=== PATIENT | female | born 1985 | race American Indian/Alaskan Native ===

== ENCOUNTER 2016-09-11 20:15 | Emergency (ER) | payer MEDICAID ==
[2016-09-11 21:23] VITALS: BP 143/96
[2016-09-11 21:39] LABS: Basophils % (Auto) 0.4 % (0.0-1.8); Eosinophils % (Auto) 0.4 % (0.0-4.3); Hemoglobin 13.6 gm/dl (10.1-14.3); Mean Corpuscular HGB Conc 33 % (30-34); Mean Corpuscular Hemoglobin 31 pg (28-32); Mean Corpuscular Volume 92 fl (79-97); Platelet Count 179 K/mm3 (140-440); Red Blood Count 4.46 M/mm3 (3.65-5.03); Red Cell Distribution Width 14.1 % (13.2-15.2); White Blood Count 11.6 K/mm3 (4.5-11.0)
[2016-09-11 22:29] LABS: Bilirubin,Urine NEG (Negative); Blood,Urine SM (Negative); Ketones,Urine 20 mg/dL (Negative); Leukocyte Esterase,Urine NEG (Negative); Mucus,Urine 3+ /HPF; Nitrite,Urine NEG (Negative); Protein,Urine <15 mg/dL mg/dL (Negative); Urobilinogen,Urine < 2.0 mg/dL (<2.0); WBC,Urine < 1.0 /HPF (0.0-6.0)
== END 2016-09-12 | disposition left against medical advice (07) ==
LOC: ED 20:15
DX: O26.851 Spotting complicating pregnancy, first trimester (principal); O20.9 Hemorrhage in early pregnancy, unspecified; Z3A.01 Less than 8 weeks gestation of pregnancy; Z53.21 Procedure and treatment not carried out due to patient leaving prior to being seen by health care provider
CPT/HCPCS: 36415; 81001; 84702; 85025; 86850; 86900; 86901

== ENCOUNTER 2016-09-12 09:40 | Emergency (ER) | payer MEDICAID ==
[2016-09-12 09:57] VITALS: BP 141/83
[2016-09-12 10:18] LABS: Basophils % (Auto) 0.4 % (0.0-1.8); Eosinophils % (Auto) 0.2 % (0.0-4.3); Hemoglobin 12.9 gm/dl (10.1-14.3); Mean Corpuscular HGB Conc 33 % (30-34); Mean Corpuscular Hemoglobin 30 pg (28-32); Mean Corpuscular Volume 92 fl (79-97); Platelet Count 180 K/mm3 (140-440); Red Blood Count 4.25 M/mm3 (3.65-5.03); Red Cell Distribution Width 13.8 % (13.2-15.2)
[2016-09-12 10:39] LABS: Bilirubin,Urine NEG (Negative); Blood,Urine MOD (Negative); Ketones,Urine NEG (Negative); Leukocyte Esterase,Urine NEG (Negative); Mucus,Urine 3+ /HPF; Nitrite,Urine NEG (Negative); Protein,Urine <15 mg/dL mg/dL (Negative); Urobilinogen,Urine < 2.0 mg/dL (<2.0)
[2016-09-12 10:45] LABS: Alanine Aminotransferase 13 units/L (7-56); Albumin/Globulin Ratio 1.2 %; Alkaline Phosphatase 66 units/L (35-129); Anion Gap 17 mmol/L; Bilirubin,Total 0.5 mg/dL (0.1-1.2); Blood Urea Nitrogen 8 mg/dL (7-17); Carbon Dioxide 22 mmol/L (22-30); Chloride 101.7 mmol/L (98-107); Glucose 104 mg/dL (65-100); Lipase 19 units/L (13-60); Potassium 3.7 mmol/L (3.6-5.0); Sodium 137 mmol/L (137-145); Total Protein 7.3 g/dL (6.3-8.2)
== END 2016-09-12 10:12 | disposition left against medical advice (07) ==
LOC: ED 09:40
DX: O26.891 Other specified pregnancy related conditions, first trimester (principal); R11.0 Nausea; R19.7 Diarrhea, unspecified; Z3A.01 Less than 8 weeks gestation of pregnancy
CPT/HCPCS: 36415; 80053; 81001; 83690; 84703; 85025

== ENCOUNTER 2017-01-10 16:36 | Outpatient (CLI) | payer MEDICAID ==
[2017-01-10] MEDS ORDERED: LACTATED RINGERS 500 ML IV ONE (18:00)
[2017-01-10 18:03] LABS: Bilirubin,Urine NEG (Negative); Blood,Urine NEG (Negative); Ketones,Urine 20 mg/dL (Negative); Leukocyte Esterase,Urine NEG (Negative); Mucus,Urine 2+ /HPF; Nitrite,Urine NEG (Negative); Protein,Urine <15 mg/dL mg/dL (Negative); Urobilinogen,Urine < 2.0 mg/dL (<2.0)
[2017-01-10] MEDS ORDERED: TYLENOL PO ONE (19:20)
[2017-01-10 19:32] VITALS: BP 104/55
--- NOTE | 2017-01-11 10:05 | Ultrasound Report ---
ULTRASOUND OB LIMITED History: well being Technique: Transabdominal ultrasound with Doppler interrogation. Gestation: Single Position: Transverse, head to maternal left Amniotic Fluid: Normal KAVON = 12.9 cm Placenta: Anterior Placental Grade: 0 Heart Rate: 158 BPM
== END 2017-01-10 20:15 | disposition home or self-care (01) ==
LOC: TRG 16:36
PROVIDERS: ATTEND Obstetrics & Gynecology
DX: O32.2XX0 Maternal care for transverse and oblique lie, not applicable or unspecified (principal); O47.02 False labor before 37 completed weeks of gestation, second trimester; Z3A.23 23 weeks gestation of pregnancy
CPT/HCPCS: 76815; 81001; 96360; J7120

== ENCOUNTER 2018-10-15 14:54 | Inpatient (IN) | payer MEDICAID ==
[2018-10-15 23:34] LABS: Hematocrit 32.3 % (30.3-42.9); Hemoglobin 10.7 gm/dl (10.1-14.3); Mean Corpuscular HGB Conc 33 % (30-34); Mean Corpuscular Volume 88 fl (79-97); Platelet Count 217 K/mm3 (140-440); Red Blood Count 3.68 M/mm3 (3.65-5.03); Red Cell Distribution Width 14.6 % (13.2-15.2)
[2018-10-15] MEDS ORDERED: PITOCin/NS 20 UNIT/1000ML DRIP 20 UNITS/1,000 ML BAG IV SCH ×2 (23:45)
[2018-10-15] MEDS ORDERED: MINERAL OIL PO PRN (23:51)
[2018-10-15] MEDS ORDERED: SUBLIMAZE IV PRN (23:51)
[2018-10-15] MEDS ORDERED: CERVIDIL VG ONE (23:51)
[2018-10-15] MEDS ORDERED: STADOL IV PRN (23:51)
[2018-10-15] MEDS ORDERED: XYLOCAINE 2% INFILTRATI ONE (23:51)
[2018-10-15 23:57] LABS: Alanine Aminotransferase 7 units/L (7-56)
[2018-10-16] MEDS ORDERED: AMBIEN PO ONE (00:03)
[2018-10-16] MEDS ORDERED: APRESOLINE IV PRN (01:30)
[2018-10-16 01:51] LABS: Uric Acid 4.2 mg/dL (3.5-7.6)
[2018-10-16 04:32] LABS: Bilirubin,Urine NEG (Negative); Blood,Urine NEG (Negative); Color,Urine Yellow (Yellow); Hyaline Casts,Urine 5 /LPF; Mucus,Urine 3+ /HPF; Urobilinogen,Urine < 2.0 mg/dL (<2.0); WBC,Urine < 1.0 /HPF (0.0-6.0)
[2018-10-16] MEDS: LACTATED RINGERS 1,000 ML IV SCH ×2 (07:05→11:10)
--- NOTE | 2018-10-16 08:28 | History and Physical Report ---
History of Present Illness Date of examination: 10/16/18 Date of admission: 10/15/18 19:07 Chief complaint: sent from [facility] for induction History of present illness: Pt is a 33 year old -[place] female SHAYE 11/04/18 at 37w2d who presents from [facility] clinic for induction of labor secondary to gestational hypertension. She denies vaginal bleeding or leakage of fluid. She has had care at [facility] with comanagement by [facility] complicated by morbid obesity, late care, ptyalism and rubella equivocal status. She is GBS Negative. Pt was admitted overnight and received cervidil at 0030 am Past History Past Medical History: GERD, other (obesity) Past Surgical History: no surgical history Family/Genetic History: diabetes Social history: no significant social history - Obstetrical History Expected Date of Delivery: 11/04/18 Actual Gestation: 37 Week(s) 2 Day(s) : 5 Para: 4 Hx # Term Pregnancies: 4 Number of Pregnancies: 0 Spontaneous Abortions: 0 Induced : 0 Number of Living Children: 4 Medications and Allergies Allergies Allergy/AdvReac Type Severity Reaction Status Date / Time No Known Allergies Allergy Verified 08/26/13 07:03 Home Medications Medication Instructions Recorded Confirmed Last Taken Type raNITIdine HCl [Ranitidine 150mg 300 mg PO BID 08/18/13 10/15/18 10/15/18 23:00 History Cap] Vit-Fe Fumar-FA [ 1 each PO ONCE #30 tablet 08/27/13 10/15/18 10/15/18 08:30 Rx Vitamin] metroNIDAZOLE [Flagyl] 500 mg PO BID 10/15/18 10/15/18 10/15/18 23:30 History Active Meds: Active Medications Butorphanol Tartrate (Stadol) 2 mg IV Q2H PRN PRN Reason: Labor Pain Ephedrine Sulfate (Ephedrine Sulfate) 10 mg IV Q2M PRN PRN Reason: Hypotension Fentanyl (Sublimaze) 100 mcg IV Q2H PRN PRN Reason: Labor Pain Last Admin: 10/16/18 07:04 Dose: 100 mcg Documented by: Hydralazine HCl (Apresoline) 5 mg IV Q30MIN PRN PRN Reason: Blood Pressure Lactated Ringer's (Lactated Ringers) 1,000 mls @ 125 mls/hr IV DIRECT SUNIL Last Admin: 10/16/18 07:05 Dose: 999 mls/hr Documented by: Oxytocin/Sodium Chloride (Pitocin/Ns 20 Unit/1000ml Drip) 20 units in 1,000 mls @ 125 mls/hr IV DIRECT SUNIL Mineral Oil (Mineral Oil) 30 ml PO QHS PRN PRN Reason: Constipation Review of Systems All systems: negative - Vital Signs Vital signs: Vital Signs Pulse BP 87 147/84 10/15/18 20:49 10/15/18 20:49 Temp Pulse Resp BP Pulse Ox 97.9 F 81 14 146/72 99 10/16/18 08:18 10/16/18 08:24 10/16/18 08:18 10/16/18 08:14 10/16/18 08:24 - Physical Exam Breasts: Positive: deferred Cardiovascular: Regular rate Lungs: Positive: Clear to auscultation Abdomen: Positive: soft (obese, gravid ) Genitourinary (Female): Positive: normal external genitalia Uterus: Positive: enlarged (gravid ) Extremities: Positive: normal - Obstetrical FHR: auscultation normal Cervical Dilatation: 1.5 (per RN ) Uterine Tone Measurement Phase: Resting Results Result Diagrams: 10/15/18 23:00 10/15/18 23:00 Abnormal lab results 10/15/18 10/15/18 Range/Units 23:00 23:00 WBC 11.5 H (4.5-11.0) K/mm3 Creatinine 0.4 L (0.7-1.2) mg/dL Lactate Dehydrogenase 202 H (91-180) units/L All other labs normal. Assessment and Plan A: IUP at 37w2d Gestational HTN Morbid Obesity GBS Negative P: Admit to labor and delivery Continue induction of labor Monitor BP curve
[2018-10-16] MEDS ORDERED: AMPICILLIN/NS 2 GM/100 ML 2 GM/100 ML BAG IV ONE ×2 (08:31→09:00)
[2018-10-16] MEDS ORDERED: PITOCin/NS 30 UNIT/500ML 30 UNITS/500 ML BAG IV SCH (09:00)
[2018-10-16] MEDS ORDERED: MINERAL OIL PO PRN (09:00)
[2018-10-16] MEDS ORDERED: NARCAN 2 MG/2 ML IV PRN (09:00)
[2018-10-16] MEDS ORDERED: BRETHINE IVP PRN (09:00)
[2018-10-16] MEDS ORDERED: BRETHINE SUB-Q PRN (09:00)
[2018-10-16] MEDS ORDERED: LACTATED RINGERS 1,000 ML IV SCH (09:00)
[2018-10-16] MEDS ORDERED: XYLOCAINE 2% INFILTRATI NR (09:00)
[2018-10-16] MEDS ORDERED: NARCAN 0.4 MG/1 ML IV PRN (09:00)
[2018-10-16] MEDS ORDERED: ZOFRAN IV PRN ×2 (09:00→20:10)
[2018-10-16] MEDS ORDERED: fentaNYL-BUPIV 2 MCG/ML-0.125% 200 MCG/100 ML BAG EPIDURAL SCH (09:30)
--- NOTE | 2018-10-16 11:21 | Anesthesia Consultation ---
Anesthesia Consult and Med Hx Date of service: 10/16/18 - Airway Anesthetic Teeth Evaluation: Good ROM Head & Neck: Adequate Mental/Hyoid Distance: Adequate Mallampati Class: Class III Intubation Access Assessment: Probably Good - Pulmonary Exam CTA: Yes - Cardiac Exam Cardiac Exam: RRR - Pre-Operative Health Status ASA Pre-Surgery Classification: ASA3 Proposed Anesthetic Plan: Epidural, Spinal - Pulmonary Hx Smoking: No Hx Asthma: No Hx Respiratory Symptoms: No SOB: No COPD: No Home Oxygen Therapy: No Hx Pneumonia: No Hx Sleep Apnea: No - Cardiovascular System Hx Hypertension: No Hx Coronary Artery Disease: No Hx Heart Attack/AMI: No Hx Angina: No Hx Percutaneous Transluminal Coronary Angioplasty (PTCA): No Hx Cardia Arrhythmia: No Hx Pacemaker: No Hx Internal Defibrillator: No Hx Valvular Heart Disease: No Hx Heart Murmur: No Hx Peripheral Vascular Disease: No - Central Nervous System Hx Neuromuscular Disorder: No Hx Seizures: No CVA: No Hx Back Pain: Yes Hx Psychiatric Problems: No - Gastrointestinal Hx Ulcer: No Hx Gastroesophageal Reflux Disease: Yes - Endocrine Hx Renal Disease: No Hx End Stage Renal Disease: No Hx Cirrhosis: No Hx Liver Disease: No Hx Insulin Dependent Diabetes: No Hx Non-Insulin Dependent Diabetes: No Hx Thyroid Disease: No Hx Hypothyroidism: No Hx Hyperthyroidism: No - Hematic Hx Anemia: No Hx Sickle Cell Disease: No - Other Systems Hx Alcohol Use: No Hx Substance Use: No Hx Cancer: No Hx Obesity: Yes
--- NOTE | 2018-10-16 11:21 | Anesthesia Day of Surgery ---
Anesthesia Day of Surgery - Day of Surgery Patient Examined: Yes Patient H&P Reviewed: Yes Patient is NPO: Yes Beta Blockers: No Cardiac Clearance: No Pulmonary Clearance: No Kumar's Test: N/A
--- NOTE | 2018-10-16 11:22 | Post Anesthesia Evaluation ---
- Post Anesthesia Evaluation Patient Participated: Yes Airway Patent: Yes Stable Respiratory Function: Yes Nausea/Vomiting: No Temp > 96.8F: Yes Pain Manageable: Yes Adequeate Hydration: Yes Anesthesia Complications: No Block Receding Appropriately: Yes Patient on Ventilator: No
[2018-10-16] MEDS ORDERED: AMPICILLIN/NS 1 GM/50 ML 1 GM/50 ML BAG IV SCH (12:30)
--- NOTE | 2018-10-16 14:29 | Event Note ---
Date: 10/16/18 Pt comfortable with epidural. SVE: 3.5/50/-3. Continue pitocin augmentation. Closely monitor maternal and status.
--- NOTE | 2018-10-16 18:18 | Event Note ---
Date: 10/16/18 Late entry. Pt comfortable with epidural. SVE: /-3. AROM- clear. Continue routine intrapartum care.
[2018-10-16] MEDS ORDERED: PHENERGAN PR PRN (20:10)
[2018-10-16] MEDS ORDERED: BENADRYL PO PRN (20:10)
[2018-10-16] MEDS ORDERED: MILK OF MAGNESIA PO PRN (20:10)
[2018-10-16] MEDS ORDERED: LANSINOH TP PRN (20:10)
[2018-10-16] MEDS ORDERED: TYLENOL PO PRN (20:10)
[2018-10-16] MEDS ORDERED: PHENERGAN PO PRN (20:10)
[2018-10-16] MEDS ORDERED: DULCOLAX PR PRN (20:10)
[2018-10-16] MEDS ORDERED: TUCKS PAD TP PRN (20:10)
--- NOTE | 2018-10-16 20:10 | Procedure Note ---
OB Delivery Note - Delivery Date of Delivery: 10/16/18 Surgeon: NYDIA COMBS Estimated blood loss: other (150ml) - Vaginal Delivery presentation: vertex Delivery position: OA Intrapartum events: none Delivery augmentation: pitocin Delivery monitor: external FHT Route of delivery: Delivery placenta: spontaneous Delivery cord: 3 umbilical vessels Episiotomy: none Delivery laceration: none Anesthesia: epidural Delivery comments: Patient progressed to C/C/+1 and pushed to deliver a liveborn male with apgars of 8/9 and weight of 5lbs 10oz. After delivery of the head, the shoulders delivered without difficulty. The cord was clamped and cut and placed on the patient's abdomen for skin to skin. The placenta delivered spontaneously intact with a 3VC. No lacerations were noted. EBL 150ml. - A at 1 minute: 8 at 5 minutes: 9 Gender: Male (weight 5lbs 10oz)
[2018-10-16] MEDS ORDERED: SODIUM CHLORIDE FLUSH SYRINGE 10 ML IV NR (21:00)
[2018-10-16] MEDS: IBUPROFEN PO SCH (23:07)
[2018-10-17] MEDS: IBUPROFEN PO SCH ×4 (05:30→23:15)
--- NOTE | 2018-10-17 08:03 | Progress Note ---
Assessment and Plan - Patient Problems (1) Morbid obesity with body mass index of 40.0-49.9 Current Visit: No Status: Acute Plan to address problem: patient doing well consider discharge later Subjective - Subjective Date of service: 10/17/18 Interval history: Patient without complaints. Pain well controlled. Patient reports: appetite normal, voiding normally, pain well controlled [place]: doing well Objective - Vital Signs Latest vital signs: Vital Signs Temp Pulse Resp BP Pulse Ox 10/16/18 22:16 98.9 F 85 20 139/80 99 10/16/18 21:22 96 H 142/78 10/16/18 21:07 88 142/78 10/16/18 20:52 88 141/74 10/16/18 20:37 95 H 138/67 10/16/18 20:22 102 H 146/80 10/16/18 20:08 101 H 135/72 10/16/18 19:27 93 H 92 10/16/18 19:26 94 H 99 10/16/18 19:21 88 88 10/16/18 19:20 89 88 10/16/18 19:16 93 H 100 10/16/18 19:11 91 H 100 10/16/18 19:10 83 127/69 10/16/18 19:07 84 85 10/16/18 19:06 86 98 10/16/18 19:01 83 97 10/16/18 18:56 89 99 10/16/18 18:54 88 90 10/16/18 18:51 80 95 10/16/18 18:47 102 H 93 10/16/18 18:46 97 H 100 10/16/18 18:41 90 113/63 100 10/16/18 18:39 87 87 10/16/18 18:36 88 92 10/16/18 18:31 89 78 L 10/16/18 18:26 101 H 86 10/16/18 18:22 93 H 84 10/16/18 18:21 76 100 10/16/18 18:16 82 100 10/16/18 18:14 96 H 0 L 10/16/18 18:11 107 H 94 10/16/18 18:09 86 120/65 10/16/18 18:08 101 H 94 10/16/18 18:06 79 100 10/16/18 18:01 87 91 10/16/18 17:56 79 84 10/16/18 17:51 86 100 10/16/18 17:46 83 99 10/16/18 17:41 92 H 100 10/16/18 17:40 96 H 130/61 10/16/18 17:36 107 H 100 10/16/18 17:32 112 H 85 10/16/18 17:31 99 H 100 10/16/18 17:26 107 H 100 10/16/18 17:25 102 H 78 L 10/16/18 17:21 88 100 10/16/18 17:16 98 H 98 10/16/18 17:15 82 130/67 94 10/16/18 17:11 104 H 100 10/16/18 17:09 78 82 L 10/16/18 17:06 95 H 100 10/16/18 16:39 103 H 133/73 10/16/18 16:21 94 H 100 10/16/18 16:19 142 H 78 L 10/16/18 16:16 102 H 100 10/16/18 16:11 117 H 98 10/16/18 16:09 120 H 129/80 10/16/18 16:06 108 H 100 10/16/18 16:01 111 H 100 10/16/18 15:56 114 H 99 10/16/18 15:51 106 H 100 10/16/18 15:46 107 H 100 10/16/18 15:44 47 L 10/16/18 15:41 118 H 98 10/16/18 15:40 114 H 135/69 10/16/18 15:39 119 H 92 10/16/18 15:34 110 H 81 L 10/16/18 15:27 70 L 10/16/18 15:26 107 H 100 10/16/18 15:21 97 H 100 10/16/18 15:16 92 H 100 10/16/18 15:15 115 H 87 10/16/18 15:10 82 66 L 10/16/18 15:09 107 H 134/70 10/16/18 15:07 51 L 78 L 10/16/18 15:05 87 100 10/16/18 15:02 69 83 L 10/16/18 15:00 98 H 100 10/16/18 14:55 109 H 100 10/16/18 14:50 101 H 100 10/16/18 14:45 101 H 100 10/16/18 14:42 91 H 84 10/16/18 14:40 104 H 98 10/16/18 14:38 105 H 129/72 10/16/18 14:35 105 H 89 10/16/18 14:30 98 H 100 10/16/18 14:28 104 H 41 L 10/16/18 14:25 106 H 100 10/16/18 14:20 96 H 100 10/16/18 14:15 108 H 99 10/16/18 14:14 121 H 0 L 10/16/18 14:10 104 H 126/72 100 10/16/18 14:07 107 H 94 10/16/18 14:05 96 H 98 10/16/18 14:00 113 H 80 L 10/16/18 13:59 93 H 91 10/16/18 13:55 102 H 100 10/16/18 13:50 100 H 100 10/16/18 13:45 92 H 100 10/16/18 13:40 97 H 100 10/16/18 13:39 86 134/71 10/16/18 13:35 81 L 10/16/18 13:32 88 74 L 10/16/18 13:30 89 100 10/16/18 13:25 88 100 10/16/18 13:20 91 H 100 10/16/18 13:15 113 H 83 L 10/16/18 13:10 66 133/78 76 L 10/16/18 13:05 111 H 91 10/16/18 13:03 103 H 88 10/16/18 13:00 116 H 99 10/16/18 12:55 96 H 100 10/16/18 12:54 54 L 79 L 10/16/18 12:50 105 H 100 10/16/18 12:45 34 L 85 10/16/18 12:40 98 H 100 10/16/18 12:39 83 131/77 87 10/16/18 12:35 110 H 100 10/16/18 12:34 53 L 93 10/16/18 12:29 111 H 100 10/16/18 12:25 26 L 79 L 10/16/18 12:24 95 H 100 10/16/18 12:19 94 H 100 10/16/18 12:14 101 H 100 10/16/18 12:09 109 H 135/74 100 10/16/18 12:06 73 L 10/16/18 12:04 100 H 100 10/16/18 12:00 115 H 94 10/16/18 11:59 100 H 95 10/16/18 11:54 92 H 90 10/16/18 11:49 101 H 100 10/16/18 11:44 106 H 99 10/16/18 11:39 83 100 10/16/18 11:38 102 H 136/76 10/16/18 11:34 103 H 100 10/16/18 11:29 99 H 100 10/16/18 11:28 101 H 93 10/16/18 11:24 110 H 100 10/16/18 11:21 55 L 86 10/16/18 11:19 100 H 100 10/16/18 11:14 95 H 100 10/16/18 11:09 110 H 100 10/16/18 11:07 98 H 93 10/16/18 11:04 96 H 141/63 100 10/16/18 10:59 103 H 148/71 88 10/16/18 10:58 104 H 83 L 10/16/18 10:54 108 H 137/72 99 10/16/18 10:52 77 L 10/16/18 10:49 93 H 136/72 100 10/16/18 10:45 84 94 10/16/18 10:44 85 122/75 99 10/16/18 10:42 88 150/65 10/16/18 10:39 80 100 10/16/18 10:34 85 100 10/16/18 10:30 85 155/79 91 10/16/18 10:27 84 134/91 96 10/16/18 09:04 79 98 10/16/18 08:59 83 97 10/16/18 08:54 80 95 10/16/18 08:49 87 100 10/16/18 08:44 79 97 10/16/18 08:39 78 99 10/16/18 08:34 84 100 10/16/18 08:29 93 H 98 10/16/18 08:24 81 99 10/16/18 08:19 69 97 10/16/18 08:18 97.9 F 79 14 93 10/16/18 08:14 81 146/72 98 10/16/18 08:09 87 100 10/16/18 08:04 74 98 Intake and Output 10/16/18 10/17/18 10/17/18 22:59 06:59 14:59 Output Total 400 600 Balance -400 -600 Output: Urine 400 600 Uretheral ([place]) 400 Void 600 Other: Total, Output Amount 200 Estimated Blood Loss 200 - Exam Abdomen: Present: normal appearance Uterus: Present: normal
--- NOTE | 2018-10-17 08:05 | Discharge Summary ---
Providers - Providers Date of Admission: 10/15/18 19:07 Date of discharge: 10/17/18 Attending physician: ELLA DELEON MD Primary care physician: MATTEO LEON Hospitalization Reason for admission: induction of labor Delivery: Discharge diagnosis: IUP at term delivered [place] baby: male Hospital course: Patient admitted for IOL for morbid obesity. Patient had a . uncomplicated Condition at discharge: Good Disposition: DC-01 TO HOME OR SELFCARE - Discharge Diagnoses (1) Morbid obesity with body mass index of 40.0-49.9 Status: Acute Plan - Discharge Medications Prescriptions: Ibuprofen [Motrin] 800 mg PO Q8HR PRN #60 tablet PRN Reason: Pain, Mild (1-3) HYDROcodone/APAP 5-325 [[place] 5/325] 1 each PO Q6HR PRN #20 tablet PRN Reason: Pain - Provider Discharge Summary Activity: no sex for 6 weeks, no heavy lifting 4 weeks, no strenuous exercise Diet: routine Instructions: routine Additional instructions: [] Smoking cessation referral if applicable(refer to patient education folder for contact #) [] Refer to [facility] Booklet Call your doctor immediately for: * Fever > 100.5 * Heavy vaginal bleeding ( >1 pad per hour) * Severe persistent headache * Shortness of breath * Reddened, hot, painful area to leg or breast * schedule followup in 4 weeks - Follow up plan
[2018-10-17 08:36] LABS: Hematocrit 28.9 % (30.3-42.9); Hemoglobin 9.8 gm/dl (10.1-14.3)
[2018-10-17] MEDS ORDERED: M-M-R II VACCINE SUB-Q ONE ×2 (19:07→19:15)
[2018-10-17] MEDS: NORCO 5/325 PO PRN (21:21)
[2018-10-18] MEDS: NORCO 5/325 PO PRN ×2 (02:45→09:56)
[2018-10-18] MEDS: IBUPROFEN PO SCH ×2 (05:15→09:55)
[2018-10-18] MEDS ORDERED: BOOSTRIX IM ONE (06:00)
[2018-10-18 13:51] VITALS: BP 138/86
== END 2018-10-18 14:05 | disposition home or self-care (01) | DRG 774 ==
LOC: TRG 14:54 → LD 19:07 → OB 10-16 22:05
PROVIDERS: ADMIT Obstetrics & Gynecology; ATTEND Obstetrics & Gynecology
PROC: 10E0XZZ Delivery of Products of Conception, External Approach (ICD-10-PCS; principal; 2018-10-16)
PROC: 10907ZC Drainage of Amniotic Fluid, Therapeutic from Products of Conception, Via Natural or Artificial Opening (ICD-10-PCS; 2018-10-16)
PROC: 3E0R3BZ Introduction of Anesthetic Agent into Spinal Canal, Percutaneous Approach (ICD-10-PCS; 2018-10-16)
PROC: 00HU33Z Insertion of Infusion Device into Spinal Canal, Percutaneous Approach (ICD-10-PCS; 2018-10-16)
PROC: 3E0234Z Introduction of Serum, Toxoid and Vaccine into Muscle, Percutaneous Approach (ICD-10-PCS; 2018-10-16)
DX: O99.62 Diseases of the digestive system complicating childbirth (principal); O13.4 Gestational [pregnancy-induced] hypertension without significant proteinuria, complicating childbirth; O99.214 Obesity complicating childbirth; E66.01 Morbid (severe) obesity due to excess calories; Z83.3 Family history of diabetes mellitus; Z37.0 Single live birth; Z3A.37 37 weeks gestation of pregnancy; Z79.899 Other long term (current) drug therapy; Z23 Encounter for immunization
CPT/HCPCS: 36415; 59200; 81001; 82565; 83615; 84450; 84460; 84550; 85014; 85018; 85027; 86592; 86706; 86850; 86900; 86901; 87806; 90471; 90715; G0378; J0290; J2590; J3010; J7120

== ENCOUNTER 2018-12-09 05:51 | Day surgery (SDC) | payer MEDICAID ==
[~2018-12-09 05:51] MED LIST: LACTATED RINGERS 1,000 ML IV SCH; MARCAINE 0.5% INFILTRATI ONE
[2018-12-09] MEDS ORDERED: VERSED IV NR (06:00)
[2018-12-09] MEDS ORDERED: TRANSDERM-SCOP TD NR (06:00)
[2018-12-09] MEDS ORDERED: NEURONTIN PO NR (06:00)
[2018-12-09] MEDS ORDERED: NACL BACTERIOSTATIC INFILTRATI ONE (06:18)
--- NOTE | 2018-12-09 07:02 | Anesthesia Consultation ---
Anesthesia Consult and Med Hx Date of service: 12/09/18 - Airway Anesthetic Teeth Evaluation: Good ROM Head & Neck: Adequate Mental/Hyoid Distance: Adequate Mallampati Class: Class III Intubation Access Assessment: Possibly Difficult - Pulmonary Exam CTA: Yes - Cardiac Exam Cardiac Exam: RRR - Pre-Operative Health Status ASA Pre-Surgery Classification: ASA2 Proposed Anesthetic Plan: General - Pulmonary Hx Smoking: Yes Hx Respiratory Symptoms: No - Cardiovascular System Hx Hypertension: No Hx Heart Attack/AMI: No Hx Percutaneous Transluminal Coronary Angioplasty (PTCA): No Hx Cardia Arrhythmia: No - Central Nervous System Hx Seizures: No CVA: No Hx Back Pain: Yes Hx Psychiatric Problems: No - Gastrointestinal Hx Ulcer: No Hx Gastroesophageal Reflux Disease: Yes (controlled) - Endocrine Hx Renal Disease: No Hx Liver Disease: No Hx Insulin Dependent Diabetes: No Hx Non-Insulin Dependent Diabetes: No Hx Thyroid Disease: No - Hematic Hx Anemia: No - Other Systems Hx Alcohol Use: Yes (Occas) Hx Substance Use: No Hx Obesity: Yes - Additional Comments Anesthesia Medical History Comments: No prior GA. No FHx anesthetic complications. Not currently breast feeding.
[2018-12-09] MEDS ORDERED: SUBLIMAZE IV PRN (07:03)
--- NOTE | 2018-12-09 07:03 | Anesthesia Day of Surgery ---
Anesthesia Day of Surgery - Day of Surgery Patient Examined: Yes Patient H&P Reviewed: Yes Patient is NPO: Yes
[2018-12-09] MEDS ORDERED: MARCAINE 0.5% INFILTRATI ONE ×3 (07:17→08:10)
--- NOTE | 2018-12-09 07:18 | Short Stay Summary ---
Short Stay Documentation Date of service: 12/09/18 Narrative H&P: 33y/o with undesired fertility. The patient is aware other contraceptive options are available. She has elected for permanent sterilization. - History Principal diagnosis: Undesired fertility Past Medical History: other (morbid obesity) Past Surgical History: No surgical history Social history: - Allergies and Medications Current Medications: Allergies No Known Allergies Allergy (Verified 12/03/18 17:59) Home Medications Medication Instructions Recorded Confirmed Last Taken Type No Known Home Medications [No 12/03/18 12/03/18 Unknown History Reported Home Medications] Active Medications Celecoxib (Celebrex) 200 mg PO PREOP NR Stop: 12/09/18 23:59 Fentanyl (Sublimaze) 50 mcg IV Q5MIN PRN PRN Reason: Pain , Severe (7-10) Gabapentin (Neurontin) 300 mg PO PREOP NR Stop: 12/09/18 23:59 Lactated Ringer's (Lactated Ringers) 1,000 mls @ 100 mls/hr IV DIRECT SUNIL Midazolam HCl (Versed) 2 mg IV PREOP NR Stop: 12/09/18 23:59 Scopolamine (Transderm-Scop) 1 each TD PREOP NR Stop: 12/09/18 23:59 - Physical exam General appearance: no acute distress Integumentary: no rash HEENT: Atraumatic Lungs: Clear to auscultation Breasts: deferred Heart: Regular rate Gastrointestinal: normal Female Genitourinary: deferred Rectal Exam: deferred - Brief post op/procedure progress note Date of procedure: 12/09/18 Pre-op diagnosis: undesired fertility Post-op diagnosis: same Procedure: Laparoscopy Bilateral salpingectomy Anesthesia: LARAA Surgeon: NYDIA COMBS Estimated blood loss: none Pathology: list (bilateral tubes) Specimen disposition: to lab Condition: stable - Hospital course Hospital course: The patient was admitted via surgery and underwent a laparoscopic bilateral salpingectomy. Please see operative note for details of surgery. Her postoperative course was uneventful. - Disposition Condition at discharge: Good Disposition: DC-01 TO HOME OR SELFCARE Short Stay Discharge Plan Activity: other (pelvic rest for 1 week) Diet: regular Additional Instructions: Follow-up is not required Follow-up as needed Prescriptions: Ibuprofen [Motrin] 800 mg PO Q8HR PRN #60 tablet PRN Reason: Pain, Mild (1-3) HYDROcodone/APAP 5-325 [[place] 5/325] 1 each PO Q6HR PRN #20 tablet PRN Reason: Pain
[2018-12-09] MEDS ORDERED: ZOFRAN ONE (07:31)
[2018-12-09] MEDS ORDERED: XYLOCAINE MPF 2% ONE (07:31)
[2018-12-09] MEDS ORDERED: ZEMURON IV ONE (07:31)
[2018-12-09] MEDS ORDERED: DIPRIVAN 10 MG/ML IV ONE (07:31)
[2018-12-09] MEDS ORDERED: ROBINUL ONE (07:56)
[2018-12-09] MEDS ORDERED: TORADOL ONE (07:56)
[2018-12-09] MEDS ORDERED: BLOXIVERZ ONE (07:56)
[2018-12-09] MEDS ORDERED: APRESOLINE ONE (08:00)
[2018-12-09] MEDS ORDERED: DECADRON ONE (08:00)
[2018-12-09] MEDS ORDERED: QUELICIN ONE (08:00)
[2018-12-09] MEDS ORDERED: BRIDION IV ONE (08:42)
--- NOTE | 2018-12-09 08:46 | Operative Report ---
Operative Report Operative Report: Date of surgery: 12/09/2018 Preoperative diagnosis: Unwanted fertility Postoperative diagnosis: Same as above Procedure: Laparoscopic bilateral salpingectomy Surgeon: Saskia Resendiz M.D. Anesthesia: General endotracheal anesthesia Estimated blood loss: Minimal Findings: Normal uterus tubes and ovaries Pathology: Bilateral fallopian tubes Indication: 33-year-old with undesired fertility. The patient elected for permanent sterilization. Procedure: The patient was taken to the operating room and given general endotracheal anesthesia without complication. The patient is prepped and draped in a normal sterile fashion. A bivalve speculum was placed in the patient's vagina and a single-tooth tenaculum was placed on the anterior lip of the cervix .A uterine acorn manipulator was placed, and the bivalve speculum was then removed. Attention was then turned to the patient's abdomen where a 5 mm infraumbilical skin incision was then made. A Veress needle was placed and peritoneal entry was verified water-filled syringe. Insufflation of the peritoneal cavity was performed with CO2 gas. A 5 mm trocar was placed and the laparoscope was then inserted. The patient was then placed in Trendelenburg. A 7 mm suprapubic skin incision was then made. Under direct visualization a 7 mm trocar was then placed. An additional left lateral 5 mm trocar was placed under direct visualization. General survey of the patient's abdomen revealed normal uterus tubes and ovaries. The fallopian tube was then followed out to the fimbriated end. The LigaSure device was used in order to remove the right fallopian tube. The mesosalpinx of the right tube was isolated and coagulated and transected. The fallopian tube was removed through the 7 mm trocar. This was performed on the contralateral side as well. The 7 mm trocar was then removed. The pneumoperitoneum was then released. The 5 mm trocars were then removed. The skin incisions were then closed with 4-0 Monocryl. The incisions were injected with quarter percent Marcaine. Dressings were applied to the incision. The vaginal instruments were then removed atraumatically. Then successfully extubated and taken to the recovery room. All sponge laps and needle counts were correct 2.
[2018-12-09] MEDS: DILAUDID IV PRN ×2 (09:00→09:20)
[2018-12-09] MEDS ORDERED: DILAUDID ONE (09:00)
[2018-12-09 10:48] VITALS: BP 160/82
--- NOTE | 2018-12-09 17:49 | Post Anesthesia Evaluation ---
- Post Anesthesia Evaluation Patient Participated: Yes Airway Patent: Yes Stable Respiratory Function: Yes Nausea/Vomiting: No Temp > 96.8F: Yes Pain Manageable: Yes Adequeate Hydration: Yes Anesthesia Complications: No Block Receding Appropriately: Not Applicable Patient on Ventilator: No
== END 2018-12-09 05:52 | disposition home or self-care (01) ==
LOC: OR 05:51
PROVIDERS: ATTEND Obstetrics & Gynecology
DX: Z30.2 Encounter for sterilization (principal); K21.9 Gastro-esophageal reflux disease without esophagitis; E66.01 Morbid (severe) obesity due to excess calories; F17.210 Nicotine dependence, cigarettes, uncomplicated; Z68.42 Body mass index [BMI] 45.0-49.9, adult; Z79.899 Other long term (current) drug therapy; Z72.89 Other problems related to lifestyle; Z83.3 Family history of diabetes mellitus; Z82.49 Family history of ischemic heart disease and other diseases of the circulatory system
CPT/HCPCS: 58661; 81025; 88302; J0330; J0360; J1100; J1170; J1885; J2250; J2405; J2704; J3010; J7120; J2710